=== PATIENT | female | born 1940 | race Caucasian/White ===

== ENCOUNTER 2016-10-01 14:40 | Inpatient (IN) | payer BC, OTHER ==
--- NOTE | 2016-10-01 15:20 | PDOC ---
History of Present Illness - General History Source: Patient, Friend (Neighbors ) Exam Limitations: No Limitations - History of Present Illness Initial Comments: 10/01/16 16:04 The patient is a 75 year old female presenting with her family, with a significant past medical history of CABG s/p cardiac stents (x2), chronic constipation, HTN, HLD and hypothyroidism, who presents to the emergency department with upper back pain for the past 3 days. She describes her pain as localized in the left upper back, ranging from mild to moderate, with radiation to the chest, and down her arm. She also reports blurry vision on the left eye. She notes that she recently had open heart surgery 2 months and is worried to what this pain may be. The patient denies shortness of breath, headache and dizziness. Denies fever, chills, nausea, vomit, diarrhea and constipation. Denies dysuria, frequency, urgency and hematuria. Allergies: None Past surgical history: CABG s/p cardiac stents (x2) (08/02/2016) Social history: No alcohol, tobacco or drug use reported PMD - Dr. 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 Mendez) <Darrick Rossi - Last Filed: 10/01/16 16:02> <Andrew Toney - Last Filed: 10/01/16 17:15> - General Chief Complaint: Chest Pain Stated Complaint: CHEST DISCOMFORT/BACK PAIN Time Seen by Provider: 10/01/16 15:06 Past History <Darrick Rossi - Last Filed: 10/01/16 16:02> - Past Medical History Anemia: No Asthma: No Cancer: No Cardiac Disorders: Yes (HEART MURMUR) CVA: No COPD: No CHF: No Dementia: No Diabetes: No GI Disorders: Yes (CHRONIC CONSTIPATION) Disorders: No HTN: Yes Hypercholesterolemia: Yes Liver Disease: No Seizures: No Thyroid Disease: Yes (HYPOTHYROID DISEASE) - Surgical History Abdominal Surgery: Yes Appendectomy: No Cardiac Surgery: Yes (07/13/2016) Cholecystectomy: No Lung Surgery: No Neurologic Surgery: No Orthopedic Surgery: No - Psycho/Social/Smoking Cessation Hx Anxiety: No Suicidal Ideation: No Smoking History: Never smoked Have you smoked in the past 12 months: No Hx Alcohol Use: No Drug/Substance Use Hx: No Substance Use Type: None Hx Substance Use Treatment: No <Andrew Toney - Last Filed: 10/01/16 17:15> - Past Medical History Allergies/Adverse Reactions: Allergies Allergy/AdvReac Type Severity Reaction Status Date / Time No Known Drug Allergies Allergy Verified 10/01/16 14:46 Home Medications: Ambulatory Orders Atorvastatin Ca [Lipitor] 40 mg PO DAILY 03/21/14 Sennosides [Senna] 8.6 mg PO PRN 03/24/14 Fluticasone Propionate [Flovent Diskus] 50 mcg IH DAILY 08/12/14 Guar Gum [Benefiber] 1 each PO BID #0 packet 08/12/14 Levothyroxine [Synthroid -] 75 mcg PO DAILY 08/12/14 Aspirin Coated [Ecotrin -] 81 mg PO DAILY #0 09/03/14 Acetaminophen [Mapap] 1,000 mg PO BID 10/01/16 Calcium Carbonate/Vitamin D3 [Oyster Shell 500-Vit D3 200 Tb] 1 each PO BID Escitalopram Oxalate [Lexapro -] 20 mg PO DAILY 10/01/16 Metoprolol Tartrate 12.5 mg PO BID 10/01/16 Review of Systems - Review of Systems Constitutional: No: Chills, Fever Respiratory: Yes: Shortness of Breath. No: Cough Cardiac (ROS): Yes: Chest Pain, Lightheadedness. No: Syncope ABD/GI: No: Vomiting All Other Systems: Reviewed and Negative <Andrew Toney - Last Filed: 10/01/16 17:15> *Physical Exam - Vital Signs Last Vital Signs Temp Pulse Resp BP Pulse Ox 98.6 F 70 18 128/71 98 10/01/16 14:42 10/01/16 14:42 10/01/16 14:42 10/01/16 14:42 10/01/16 15:05 - Physical Exam Comments: 10/01/16 16:02 GENERAL: The patient is awake, alert, and fully oriented, in no acute distress. HEAD: Normal with no signs of trauma. EYES: Pupils equal, round and reactive to light, extraocular movements intact, sclera anicteric, conjunctiva clear with no pallor. ENT: Ears normal, nares patent, oropharynx clear without exudates. Moist mucous membranes. NECK: Normal range of motion, supple without lymphadenopathy, JVD, or masses. LUNGS: Breath sounds equal, (+) Crackles at the left base. HEART: Regular rate and rhythm, normal S1 and S2 without murmur or rub. ABDOMEN: Soft/nontender/nondistended. BS wnl. No guarding or rebound. No palpable masses. No hepatosplenomegaly. EXTREMITIES: Normal range of motion, no edema. No clubbing or cyanosis. No cords , erythema, or tenderness. NEUROLOGICAL: Cranial nerves II through XII grossly intact. Normal speech, normal gait. PSYCH: Normal mood, normal affect. SKIN: (+) Well healed scars in the chest. Warm, Dry, normal turgor, no rashes or lesions noted. <Darrick Rossi - Last Filed: 10/01/16 16:02> - Vital Signs Last Vital Signs Temp Pulse Resp BP Pulse Ox 98.6 F 70 18 128/71 98 10/01/16 14:42 10/01/16 14:42 10/01/16 14:42 10/01/16 14:42 10/01/16 14:42 <Andrew Toney - Last Filed: 10/01/16 17:15> Heart Score/ECG Review #1 ECG reviewed & interpreted by me at: 14:53 General ECG Interpretation: Sinus Rhythm, Normal Rate (73), Normal Intervals ( LVH, qtc 456), No acute ischemic changes (T wave flattening AVL) <Andrew Toney - Last Filed: 10/01/16 17:15> ED Treatment Course - LABORATORY CBC & Chemistry Diagram: 10/01/16 16:00 10/01/16 16:00 <Andrew Toney - Last Filed: 10/01/16 17:15> Medical Decision Making - Medical Decision Making 10/01/16 15:35 A portion of this note was documented by scribe services under my direction. I have reviewed the details of the note, within reason, and agree with the documentation with the following case summary and management plan written by me. 75-year-old female with history of hypertension, high cholesterol, CAD status post 2 stents in June, valvular disease status post 2 valve replacements in July (she is unsure which ones) presents now with 3-4 days of back/chest pain radiating down her left arm with shortness of breath. No syncope. Vital signs within normal limits, not hypertensive, comfortable in stretcher and not in acute distress Cardiopulmonary exam is normal except for left basilar crackles Well-healed incisional scars 75-year-old female with chest/back pain following open valve replacements. Patient has low insight into her recent surgeries, which were performed at [facility]. Concern for ACS, but also for dissection given the location of the pain and recent intervention. labs, EKG CXR -> CTA dissection protocol admission, PMD Yumiko Dallas 10/01/16 17:08 Labs are within normal limits, including troponin. On my prelim review, CXR has mediastinum wnl. Will hydrate with IV fluids, perform CTA dissection protocol, and proceed with admission. Patient was signed out to the oncoming ED physician to follow-up the results, reassess the patient, and admit/transfer as per the previous plan. <Andrew Toney - Last Filed: 10/01/16 17:15> *DC/Admit/Observation/Transfer - Attestations Scribe Attestion: 10/01/16 16:02 Documentation prepared by Darrick Rossi, acting as medical research assistant for Andrew Toney MD <Darrick Rossi - Last Filed: 10/01/16 16:02> <Andrew Toney - Last Filed: 10/01/16 17:15> Diagnosis at time of Disposition: Left sided chest pain, Heart valve replaced - Referrals Referrals: Willy Dallas MD [Primary Care Provider] -
[2016-10-01] MEDS ORDERED: morphine CARPU-JECT 2 MG/1 ML DISP.SYRIN IVPUSH ONE (16:05)
[2016-10-01 16:19] LABS: BASOPHIL 0.6 % (0-2.0); EOSINOPHIL 1.9 % (0-4.5); MCH 29.7 pg (25.7-33.7); MCHC 32.4 g/dl (32.0-36.0); MEAN CELL VOLUME 91.6 fl (80-96); NEUTROPHILS 65.8 % (42.8-82.8); PLATELET COUNT 206 K/MM3 (134-434); RDW 14.1 % (11.6-15.6); WHITE BLOOD COUNT 6.8 K/mm3 (4.0-10.0)
[2016-10-01 16:23] LABS: URINE APPEARANCE CLEAR; URINE BILIRUBIN NEGATIVE (NEGATIVE); URINE BLOOD NEGATIVE (NEGATIVE); URINE COLOR LTYELLOW; URINE GLUCOSE (UA) NEGATIVE (NEGATIVE); URINE KETONE NEGATIVE (NEGATIVE); URINE LEUK ESTERASE NEGATIVE (NEGATIVE); URINE NITRITE NEGATIVE (NEGATIVE); URINE PROTEIN NEGATIVE (NEGATIVE); URINE UROBILINOGEN NEGATIVE E.U./dl (0.2-1.0)
[2016-10-01] MEDS ORDERED: morphine CARPU-JECT 2 MG/1 ML DISP.SYRIN ONE (16:27)
[2016-10-01 16:36] LABS: INR 1.21 (0.82-1.09); PROTHROMBIN TIME (PATIENT) 13.4 SEC (9.98-11.88)
[2016-10-01 16:44] LABS: ALBUMIN 3.9 g/dl (3.4-5.0); ALK PHOS 81 U/L (45-117); ANION GAP 9 (8-16); BILIRUBIN,TOTAL 0.5 mg/dL (0.2-1.0); CALCIUM 9.1 mg/dL (8.5-10.1); CO2 26 mmol/L (21-32); COCKROFT - GAULT 63.5545; CREATININE 0.7 mg/dL (0.55-1.02); GLUCOSE,RANDOM 94 mg/dL (74-106); MAGNESIUM 2.2 mg/dL (1.8-2.4); SGOT/AST 15 U/L (15-37); SGPT/ALT 16 U/L (12-78); TOT PROT 7.5 g/dl (6.4-8.2)
[2016-10-01 16:46] LABS: TROPONIN I < 0.02 ng/ml (0.00-0.05)
[2016-10-01] MEDS ORDERED: SODIUM CHLORIDE 1,000 ML IV ONE (17:07)
--- NOTE | 2016-10-01 18:43 | PDOC ---
*Physical Exam - Vital Signs Last Vital Signs Temp Pulse Resp BP Pulse Ox 98.6 F 73 17 102/85 100 10/01/16 14:42 10/01/16 18:09 10/01/16 18:09 10/01/16 18:09 10/01/16 18:09 ED Treatment Course - LABORATORY CBC & Chemistry Diagram: 10/01/16 16:00 10/01/16 16:00 - ADDITIONAL ORDERS Additional order review: Laboratory Results 10/01/16 10/01/16 10/01/16 17:00 16:00 16:00 INR Sodium 140 Potassium 4.3 D Chloride 105 Carbon Dioxide 26 Anion Gap 9 BUN 20 H Creatinine 0.7 Creat Clearance w eGFR > 60 Random Glucose 94 Calcium 9.1 Magnesium 2.2 Total Bilirubin 0.5 AST 15 ALT 16 D Alkaline Phosphatase 81 Creatine Kinase 98 Troponin I < 0.02 Total Protein 7.5 Albumin 3.9 Urine Color Ltyellow Urine Appearance Clear Urine pH 6.0 Ur Specific [place] 1.016 Urine Protein Negative Urine Glucose (UA) Negative Urine Ketones Negative Urine Blood Negative Urine Nitrite Negative Urine Bilirubin Negative Urine Urobilinogen Negative Ur Leukocyte Esterase Negative Blood Type A POSITIVE Antibody Screen Negative 10/01/16 16:00 INR 1.21 H Sodium Potassium Chloride Carbon Dioxide Anion Gap BUN Creatinine Creat Clearance w eGFR Random Glucose Calcium Magnesium Total Bilirubin AST ALT Alkaline Phosphatase Creatine Kinase Troponin I Total Protein Albumin Urine Color Urine Appearance Urine pH Ur Specific [place] Urine Protein Urine Glucose (UA) Urine Ketones Urine Blood Urine Nitrite Urine Bilirubin Urine Urobilinogen Ur Leukocyte Esterase Blood Type Antibody Screen 10/01/16 16:00 RBC 4.24 MCV 91.6 MCHC 32.4 RDW 14.1 MPV 9.0 Neutrophils % 65.8 Lymphocytes % 24.5 Monocytes % 7.2 Eosinophils % 1.9 Basophils % 0.6 - Medications Given in the ED: ED Medications Discontinued Medications Generic Name Dose Route Start Last Admin Trade Name Freq PRN Reason Stop Dose Admin Morphine Sulfate 2 mg 10/01/16 16:05 10/01/16 16:33 Morphine Injection - IVPUSH 10/01/16 16:06 2 mg ONCE ONE Administration Medical Decision Making - Medical Decision Making 10/01/16 18:42 I received this patient on signed out. Briefly she is a 75-year-old female who is approximately 2 months status post? valve replacement Pr presents to the ER with chest and back pain No shortness of breath 10/01/16 18:43 Laboratory Tests 10/01/16 10/01/16 10/01/16 16:00 16:00 16:00 WBC 6.8 Hgb 12.6 Hct 38.9 Plt Count 206 INR 1.21 H BUN 20 H Creatinine 0.7 Creatine Kinase 98 Troponin I < 0.02 Awaiting CTA chest 10/01/16 22:22 Multiple calls made to imaging curriculum consultant CT finally read No evidence of dissection Will admit to Dr Anne Clinical Impression: chest pain *DC/Admit/Observation/Transfer Diagnosis at time of Disposition: Left sided chest pain, Heart valve replaced - Discharge Dispostion Condition at time of disposition: Stable Admit: Yes - Referrals Referrals: Willy Dallas MD [Primary Care Provider] - - Patient Instructions - Post Discharge Activity
[2016-10-01] MEDS ORDERED: OXYCODONE/APAP 5/325MG COMBO TABLET PO ONE (23:49)
[2016-10-01] MEDS ORDERED: OXYCODONE/APAP 5/325MG COMBO TABLET ONE (23:55)
[2016-10-02] MEDS ORDERED: LEVOTHYROXINE NA 25 MCG TABLET (FP) ONE (07:03)
[2016-10-02] MEDS: LEVOTHYROXINE NA 75 MCG TABLET (FP) PO SCH (07:07)
--- NOTE | 2016-10-02 07:57 | CON.CARD ---
Consult Consult Specialty:: Cardiology dr. Mendez - History of Present Illness History of Present Illness: he patient is a 75 year old female presenting with her family, with a significant past medical history of CABG s/p cardiac stents (x2), chronic constipation, HTN, HLD and hypothyroidism, who presents to the emergency department with upper back pain for the past 3 days. She describes her pain as localized in the left upper back, ranging from mild to moderate, with radiation to the chest, and down her arm. She also reports blurry vision on the left eye. She notes that she recently had open heart surgery 2 months and is worried to what this pain may be. The patient denies shortness of breath, headache and dizziness. Denies fever, chills, nausea, vomit, diarrhea and constipation. Denies dysuria, frequency, urgency and hematuria. Allergies: None Past surgical history: CABG s/p cardiac stents (x2) (08/02/2016) Social history: No alcohol, tobacco or drug use reported PMD - Dr. 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 Mendez) - Past Medical History Cardio/Vascular: Yes: CAD, HTN, Hyperlipdemia Endocrine: Yes: Hypothyroidism - Past Surgical History Past Surgical History: Yes: CABG - Alcohol/Substance Use Hx Alcohol Use: No - Smoking History Smoking history: Never smoked Have you smoked in the past 12 months: No Home Medications - Allergies Allergies/Adverse Reactions: Allergies Allergy/AdvReac Type Severity Reaction Status Date / Time No Known Drug Allergies Allergy Verified 10/01/16 14:46 - Home Medications Home Medications: Ambulatory Orders Atorvastatin Ca [Lipitor] 40 mg PO DAILY 03/21/14 Sennosides [Senna] 8.6 mg PO PRN 03/24/14 Fluticasone Propionate [Flovent Diskus] 50 mcg IH DAILY 08/12/14 Guar Gum [Benefiber] 1 each PO BID #0 packet 08/12/14 Levothyroxine [Synthroid -] 75 mcg PO DAILY 08/12/14 Aspirin Coated [Ecotrin -] 81 mg PO DAILY #0 09/03/14 Acetaminophen [Mapap] 1,000 mg PO BID 10/01/16 Calcium Carbonate/Vitamin D3 [Oyster Shell 500-Vit D3 200 Tb] 1 each PO BID Escitalopram Oxalate [Lexapro -] 20 mg PO DAILY 10/01/16 Metoprolol Tartrate 12.5 mg PO BID 10/01/16 Review of Systems - Review of Systems Constitutional: reports: No Symptoms Eyes: reports: No Symptoms HENT: reports: No Symptoms Neck: reports: No Symptoms Cardiovascular: reports: No Symptoms Gastrointestinal: reports: No Symptoms Genitourinary: reports: No Symptoms Breasts: reports: No Symptoms Reported Musculoskeletal: reports: Other (left shoulder pain) Integumentary: reports: No Symptoms Neurological: reports: No Symptoms Endocrine: reports: No Symptoms Hematology/Lymphatic: reports: No Symptoms Psychiatric: reports: No Symptoms Vital Signs: Vital Signs Temperature 97.7 F 10/02/16 05:05 Pulse Rate 78 10/02/16 05:05 Respiratory Rate 16 10/02/16 05:05 Blood Pressure 108/67 10/02/16 05:05 O2 Sat by Pulse Oximetry (%) 96 10/02/16 05:05 Constitutional: Yes: Well Nourished, No Distress, Calm Eyes: Yes: WNL, Conjunctiva Clear, EOM Intact HENT: Yes: WNL, Atraumatic, Normocephalic Neck: Yes: WNL, Supple, Trachea Midline Respiratory: Yes: WNL, Regular, CTA Bilaterally Gastrointestinal: Yes: WNL, Normal Bowel Sounds Renal/: Yes: WNL Cardiovascular: Yes: WNL, Regular Rate and Rhythm Musculoskeletal: Yes: WNL Extremities: Yes: WNL Integumentary: Yes: WNL Neurological: Yes: WNL, Alert, Oriented ...Motor Strength: WNL Psychiatric: Yes: WNL, Alert, Oriented - Other Data Labs, Other Data: INR, PTT INR 1.21 (0.82-1.09) H 10/01/16 16:00 Laboratory Tests 10/01/16 10/01/16 10/01/16 16:00 16:00 16:00 WBC 6.8 RBC 4.24 Hgb 12.6 Hct 38.9 MCV 91.6 MCHC 32.4 RDW 14.1 Plt Count 206 MPV 9.0 Neutrophils % 65.8 Lymphocytes % 24.5 Monocytes % 7.2 Eosinophils % 1.9 Basophils % 0.6 INR 1.21 H Sodium 140 Potassium 4.3 D Chloride 105 Carbon Dioxide 26 Anion Gap 9 BUN 20 H Creatinine 0.7 Creat Clearance w eGFR > 60 Random Glucose 94 Calcium 9.1 Magnesium 2.2 Total Bilirubin 0.5 AST 15 ALT 16 D Alkaline Phosphatase 81 Creatine Kinase 98 Troponin I < 0.02 Total Protein 7.5 Albumin 3.9 Urine Color Urine Appearance Urine pH Ur Specific [place] Urine Protein Urine Glucose (UA) Urine Ketones Urine Blood Urine Nitrite Urine Bilirubin Urine Urobilinogen Ur Leukocyte Esterase Blood Type Antibody Screen 10/01/16 10/01/16 10/02/16 16:00 17:00 06:00 WBC 5.3 RBC 3.87 Hgb 11.7 Hct 35.8 MCV 92.5 MCHC 32.7 RDW 13.8 Plt Count 176 MPV 9.1 Neutrophils % 44.9 D Lymphocytes % 42.2 H D Monocytes % 9.6 Eosinophils % 2.8 Basophils % 0.5 INR Sodium Potassium Chloride Carbon Dioxide Anion Gap BUN Creatinine Creat Clearance w eGFR Random Glucose Calcium Magnesium Total Bilirubin AST ALT Alkaline Phosphatase Creatine Kinase Troponin I Total Protein Albumin Urine Color Ltyellow Urine Appearance Clear Urine pH 6.0 Ur Specific [place] 1.016 Urine Protein Negative Urine Glucose (UA) Negative Urine Ketones Negative Urine Blood Negative Urine Nitrite Negative Urine Bilirubin Negative Urine Urobilinogen Negative Ur Leukocyte Esterase Negative Blood Type A POSITIVE Antibody Screen Negative 10/02/16 06:00 WBC RBC Hgb Hct MCV MCHC RDW Plt Count MPV Neutrophils % Lymphocytes % Monocytes % Eosinophils % Basophils % INR Sodium 141 Potassium 4.1 Chloride 107 Carbon Dioxide 28 Anion Gap 6 L BUN 14 D Creatinine 0.6 Creat Clearance w eGFR > 60 Random Glucose 74 D Calcium 8.2 L Magnesium Total Bilirubin 0.4 AST 13 L ALT 13 Alkaline Phosphatase 71 Creatine Kinase 71 Troponin I < 0.02 Total Protein 6.3 L Albumin 3.2 L Urine Color Urine Appearance Urine pH Ur Specific [place] Urine Protein Urine Glucose (UA) Urine Ketones Urine Blood Urine Nitrite Urine Bilirubin Urine Urobilinogen Ur Leukocyte Esterase Blood Type Antibody Screen Imaging - Results Chest X-ray: Image Reviewed (no i/e) EKG: Image Reviewed (sr lvh no changes) Problem List - Problems (1) Heart valve replaced Code(s): Z95.2 - PRESENCE OF PROSTHETIC HEART VALVE (2) Left sided chest pain Code(s): R07.9 - CHEST PAIN, UNSPECIFIED (3) Abrasions of multiple sites Code(s): T14.8 - OTHER INJURY OF UNSPECIFIED BODY REGION (4) Atypical chest pain Code(s): R07.89 - OTHER CHEST PAIN (5) Closed head injury Code(s): S09.90XA - UNSPECIFIED INJURY OF HEAD, INITIAL ENCOUNTER Qualifiers: Encounter type: initial encounter Qualified Code(s): S09.90XA - Unspecified injury of head, initial encounter (6) Headache Code(s): R51 - HEADACHE Qualifiers: Headache type: post-traumatic (7) Knee joint pain Code(s): M25.569 - PAIN IN UNSPECIFIED KNEE Qualifiers: Laterality: right Qualified Code(s): M25.561 - Pain in right knee (8) Shoulder contusion Code(s): S40.019A - CONTUSION OF UNSPECIFIED SHOULDER, INITIAL ENCOUNTER Qualifiers: Encounter type: sequela Laterality: right Qualified Code(s): S40.011S - Contusion of right shoulder, sequela (9) Torticollis, acute Code(s): M43.6 - TORTICOLLIS (10) Trauma Code(s): T14.90 - INJURY, UNSPECIFIED Assessment/Plan l shoulder pain no cp ashd s/p cabg s/p pci x 2 Aug 02 htn hld hypothyroidism plan; r/o mi obtain old records from the office ekg echo will add Plavix since recent PCI cont asa and bb
[2016-10-02 08:02] LABS: BASOPHIL 0.5 % (0-2.0); EOSINOPHIL 2.8 % (0-4.5); MCH 30.3 pg (25.7-33.7); MCHC 32.7 g/dl (32.0-36.0); MEAN CELL VOLUME 92.5 fl (80-96); MEAN PLT VOLUME 9.1 fl (7.5-11.1); NEUTROPHILS 44.9 % (42.8-82.8); PLATELET COUNT 176 K/MM3 (134-434); RDW 13.8 % (11.6-15.6); WHITE BLOOD COUNT 5.3 K/mm3 (4.0-10.0)
[2016-10-02 08:21] LABS: ALBUMIN 3.2 g/dl (3.4-5.0); ANION GAP 6 (8-16); CALCIUM 8.2 mg/dL (8.5-10.1); CO2 28 mmol/L (21-32); COCKROFT - GAULT 74.1455; CREATININE 0.6 mg/dL (0.55-1.02); GLUCOSE,RANDOM 74 mg/dL (74-106); SGOT/AST 13 U/L (15-37); SGPT/ALT 13 U/L (12-78)
[2016-10-02 08:26] LABS: ALK PHOS 71 U/L (45-117); BILIRUBIN,TOTAL 0.4 mg/dL (0.2-1.0); TOT PROT 6.3 g/dl (6.4-8.2); TROPONIN I < 0.02 ng/ml (0.00-0.05)
[2016-10-02] MEDS ORDERED: PATIENT'S OWN MEDICATION (NON-FORMULARY) (Fluticasone Propionate [Flovent Diskus] 50 MCG) IH SCH (10:00)
[2016-10-02] MEDS: METOPROLOL TARTRATE 25 MG TABLET (FP) PO SCH ×2 (10:10→22:25)
[2016-10-02] MEDS: ESCITALOPRAM OXALATE 20 MG TABLET (FP) PO SCH (10:14)
[2016-10-02] MEDS: HEPARIN NA (PORCINE) 5,000 UNITS/ML 1ML VIAL SQ SCH ×2 (10:16→22:23)
[2016-10-02] MEDS: CALCIUM 500MG/VIT-D 200 UNITS COMBO TABLET (FP) PO SCH ×2 (10:17→22:25)
[2016-10-02] MEDS: ASPIRIN COATED 81 MG TABLET.EC PO SCH (10:17)
[2016-10-02] MEDS ORDERED: CLOPIDOGREL BISULFATE 75 MG TABLET (FP) ONE (11:22)
[2016-10-02] MEDS: ACETAMINOPHEN 500 MG TABLET (FP) PO SCH (11:25)
[2016-10-02] MEDS: CLOPIDOGREL BISULFATE 75 MG TABLET (FP) PO SCH (11:26)
[2016-10-02 17:08] VITALS: BMI 28.8
--- NOTE | 2016-10-02 18:46 | HP ---
Admitting History and Physical - Admission History of Present Illness: Patient is a 75 year old female with PMH significant for CAD, s/p CABG s/p and cardiac stents (x2). Pt also has a h/o HTN, HLD and hypothyroidism, who presents to the emergency department with upper back pain for the past 3 days. She describes her pain as localized in the left upper back, ranging from mild to moderate, with radiation to the chest, and down her arm. She notes that she recently had open heart surgery 2 months and is worried to what this pain may be. In the ER pt had cta chest wc was unremarkable. Pain is pleuritic at times but also associated w/ dyspnea. History Source: Patient, Medical Record - Past Medical History Cardiovascular: Yes: CAD, HTN, Hyperlipdemia, Other (Cardiac stents) Endocrine: Yes: Hypothyroidism - Past Surgical History Past Surgical History: Yes: CABG Additional Past Surgical History: Cardiac stents - Smoking History Smoking history: Never smoked Have you smoked in the past 12 months: No - Alcohol/Substance Use Hx Alcohol Use: No Home Medications - Allergies Allergies/Adverse Reactions: Allergies Allergy/AdvReac Type Severity Reaction Status Date / Time No Known Drug Allergies Allergy Verified 10/01/16 14:46 - Home Medications Home Medications: Ambulatory Orders Atorvastatin Ca [Lipitor] 40 mg PO DAILY 03/21/14 Sennosides [Senna] 8.6 mg PO PRN 03/24/14 Fluticasone Propionate [Flovent Diskus] 50 mcg IH DAILY 08/12/14 Guar Gum [Benefiber] 1 each PO BID #0 packet 08/12/14 Levothyroxine [Synthroid -] 75 mcg PO DAILY 08/12/14 Aspirin Coated [Ecotrin -] 81 mg PO DAILY #0 09/03/14 Acetaminophen [Mapap] 1,000 mg PO BID 10/01/16 Calcium Carbonate/Vitamin D3 [Oyster Shell 500-Vit D3 200 Tb] 1 each PO BID Escitalopram Oxalate [Lexapro -] 20 mg PO DAILY 10/01/16 Metoprolol Tartrate 12.5 mg PO BID 10/01/16 Family Disease History - Family Disease History Family History: Unremarkable Review of Systems - Review of Systems Constitutional: reports: No Symptoms Eyes: reports: No Symptoms HENT: reports: No Symptoms Neck: reports: No Symptoms Cardiovascular: reports: Chest Pain Respiratory: reports: SOB Gastrointestinal: reports: No Symptoms Physical Examination Vital Signs: Vital Signs Temperature 98.2 F 10/02/16 16:52 Pulse Rate 88 10/02/16 16:52 Respiratory Rate 18 10/02/16 16:52 Blood Pressure 119/75 10/02/16 16:52 O2 Sat by Pulse Oximetry (%) 96 10/02/16 16:49 Constitutional: Yes: Well Nourished HENT: Yes: WNL Neck: Yes: WNL, Supple Cardiovascular: Yes: WNL, Regular Rate and Rhythm Respiratory: Yes: WNL, Regular, CTA Bilaterally, Other ((+) tenderness palpation lt ant chest wall) Gastrointestinal: Yes: WNL, Normal Bowel Sounds, Soft, Abdomen, Obese Musculoskeletal: Yes: WNL Extremities: Yes: WNL Edema: No Neurological: Yes: WNL, Alert, Oriented ...Motor Strength: WNL Labs: CBC, BMP 10/02/16 06:00 10/02/16 06:00 Problem List - Problems (1) Chest pain Assessment/Plan: ?muscular skeletal in origin However due to recent CABG will monitor on tele Serial cpk/troponin Admit to tele Cardio consult check echo Code(s): R07.9 - CHEST PAIN, UNSPECIFIED (2) HTN (hypertension) Assessment/Plan: BP stable Cont asa/toprol Code(s): I10 - ESSENTIAL (PRIMARY) HYPERTENSION (3) HLD (hyperlipidemia) Assessment/Plan: Cont lipitor Code(s): E78.5 - HYPERLIPIDEMIA, UNSPECIFIED (4) Hypothyroidism Assessment/Plan: Cont levothyroxine Code(s): E03.9 - HYPOTHYROIDISM, UNSPECIFIED
[2016-10-02] MEDS ORDERED: ATORVASTATIN CA 40 MG TABLET (FP) PO SCH (22:00)
[2016-10-02] MEDS ORDERED: METOPROLOL TARTRATE 25 MG TABLET (FP) ONE (22:06)
[2016-10-02] MEDS ORDERED: HEPARIN NA (PORCINE) 5,000 UNITS/ML 1ML VIAL ONE (22:06)
[2016-10-02] MEDS ORDERED: ATORVASTATIN CA 40 MG TABLET (FP) ONE (22:06)
[2016-10-02] MEDS ORDERED: SENNOSIDES 8.6MG TABLET (FP) PO PRN (23:58)
--- NOTE | 2016-10-03 00:09 | EKG ---
Test Reason : Blood Pressure : / mmHG Vent. Rate : 073 BPM Atrial Rate : 073 BPM P-R Int : 144 ms QRS Dur : 088 ms QT Int : 414 ms P-R-T Axes : 046 -06 057 degrees QTc Int : 456 ms NORMAL SINUS RHYTHM POSSIBLE LEFT ATRIAL ENLARGEMENT LEFT VENTRICULAR HYPERTROPHY ABNORMAL ECG WHEN COMPARED WITH ECG OF 03-MAR-2015 17:52, NO SIGNIFICANT CHANGE WAS FOUND Confirmed by SHANITA CROW MD ([id number]) on 10/03/2016 12:09:17 AM Referred By: Confirmed By:SHANITA CROW MD
[2016-10-03] MEDS: ACETAMINOPHEN 500 MG TABLET (FP) PO SCH ×2 (00:21→10:55)
[2016-10-03 06:04] VITALS: BP 154/76
[2016-10-03] MEDS: LEVOTHYROXINE NA 75 MCG TABLET (FP) PO SCH (06:11)
[2016-10-03 08:56] LABS: BASOPHIL 0.5 % (0-2.0); EOSINOPHIL 2.8 % (0-4.5); MCH 30.8 pg (25.7-33.7); MCHC 33.9 g/dl (32.0-36.0); MEAN PLT VOLUME 9.4 fl (7.5-11.1); NEUTROPHILS 45.6 % (42.8-82.8); PLATELET COUNT 188 K/MM3 (134-434); RDW 13.7 % (11.6-15.6)
[2016-10-03] MEDS ORDERED: PNEUMOC 13-VAL CONJ-DIP CRM/PF 0.5 ML DISP.SYRIN IM ONE (10:00)
[2016-10-03 10:43] LABS: ALBUMIN 3.5 g/dl (3.4-5.0); ANION GAP 10 (8-16); BILIRUBIN,TOTAL 0.3 mg/dL (0.2-1.0); CO2 25 mmol/L (21-32); COCKROFT - GAULT 74.1455; CREATININE 0.6 mg/dL (0.55-1.02); GLUCOSE,RANDOM 90 mg/dL (74-106); SGOT/AST 19 U/L (15-37); SGPT/ALT 14 U/L (12-78)
[2016-10-03 10:44] LABS: ALK PHOS 75 U/L (45-117)
[2016-10-03] MEDS ORDERED: ESCITALOPRAM OXALATE 10 MG TABLET (FP) ONE (10:50)
[2016-10-03] MEDS: CALCIUM 500MG/VIT-D 200 UNITS COMBO TABLET (FP) PO SCH (10:53)
[2016-10-03] MEDS: METOPROLOL TARTRATE 25 MG TABLET (FP) PO SCH (10:53)
[2016-10-03] MEDS: HEPARIN NA (PORCINE) 5,000 UNITS/ML 1ML VIAL SQ SCH (10:54)
[2016-10-03] MEDS: ESCITALOPRAM OXALATE 20 MG TABLET (FP) PO SCH (10:54)
[2016-10-03] MEDS: ASPIRIN COATED 81 MG TABLET.EC PO SCH (10:54)
[2016-10-03] MEDS: CLOPIDOGREL BISULFATE 75 MG TABLET (FP) PO SCH (10:54)
--- NOTE | 2016-10-03 12:42 | PN ---
Progress Note, Physician History of Present Illness: seen and examined today in nad. c/o L axilla pain. pain exacerbated by upper body movements especially raising her L arm. no overnight events. no new complaints. - Current Medication List Current Medications: Active Medications Acetaminophen (Tylenol -) 1,000 mg PO BID [facility] Last Admin: 10/03/16 10:55 Dose: 1,000 mg Aspirin (Ecotrin -) 81 mg PO DAILY [facility] Last Admin: 10/03/16 10:54 Dose: 81 mg Atorvastatin Calcium (Lipitor -) 40 mg PO HS [facility] Last Admin: 10/02/16 22:23 Dose: 40 mg Calcium Carbonate/Cholecalciferol (Os-Luis M 500+D -) 1 tab PO BID [facility] Last Admin: 10/03/16 10:53 Dose: 1 tab Clopidogrel Bisulfate (Plavix -) 75 mg PO DAILY [facility] Last Admin: 10/03/16 10:54 Dose: 75 mg Escitalopram Oxalate (Lexapro -) 20 mg PO DAILY [facility] Last Admin: 10/03/16 10:54 Dose: 20 mg Heparin Sodium (Porcine) (Heparin -) 5,000 unit SQ BID [facility] Last Admin: 10/03/16 10:54 Dose: 5,000 unit Levothyroxine Sodium (Synthroid -) 75 mcg PO AM [facility] Last Admin: 10/03/16 06:11 Dose: 75 mcg Metoprolol Tartrate (Lopressor -) 12.5 mg PO BID [facility] Last Admin: 10/03/16 10:53 Dose: 12.5 mg Non-Formulary Medication (Fluticasone Propionate [Flovent Diskus]) 50 mcg IH DAILY [facility] Senna (Senna -) 1 tab PO DAILY PRN Last Admin: 10/03/16 06:11 Dose: 1 tab - Objective Vital Signs: Vital Signs Temperature 98.8 F 10/03/16 05:45 Pulse Rate 66 10/03/16 05:45 Respiratory Rate 20 10/03/16 05:45 Blood Pressure 154/76 10/03/16 05:45 O2 Sat by Pulse Oximetry (%) 97 10/03/16 03:00 Constitutional: Yes: Well Nourished, No Distress, Calm Eyes: Yes: WNL, Conjunctiva Clear, EOM Intact, PERRL HENT: Yes: WNL, Atraumatic, Normocephalic Neck: Yes: WNL, Supple, Trachea Midline Cardiovascular: Yes: Regular Rate and Rhythm, S1, S2. No: Bradycardia, Tachycardia, Pulse Irregular, Bruit, JVD, Gallop, Murmur, Rub, S3, S4, Varicosities Respiratory: Yes: WNL, Regular, CTA Bilaterally. No: Rales, Rhonchi, Wheezes Gastrointestinal: Yes: WNL, Normal Bowel Sounds, Soft. No: Distention, Tenderness Musculoskeletal: Yes: Other (chest wall pain) Extremities: Yes: WNL Edema: No Peripheral Pulses WNL: Yes Peripheral Pulses: Left Doralis Pedis: 2+, Right Dorsalis Pedis: 2+ Integumentary: Yes: WNL Neurological: Yes: Alert, Oriented Psychiatric: Yes: Alert, Oriented Labs: CBC, BMP 10/03/16 08:30 10/03/16 08:30 INR, PTT INR 1.21 (0.82-1.09) H 10/01/16 16:00 - ....Imaging Chest X-ray: Report Reviewed, Image Reviewed EKG: Report Reviewed, Image Reviewed Other: Report Reviewed, Image Reviewed Assessment/Plan 75 year old woman with a history of HTN, HLD, DMII, CAD s/p MISSY LAD 04/2016, valvular heart disease s/p Bio-AVR, MV repair and PFO closure recently, mildly dilated ascending aorta, admitted with L shoulder, L upper back, L axilla pain. Chest pain-atypical, reproducible with L arm movements, most likely MSK -cardiac enzymes wnl -no additional ischemic work up is needed at this point -cont ASA, Plavix, statin, metoprolol -f/up echo that was done today -MSK pain control -pt is acceptable for discharge from a cardiac standpoint with a plan for close outpatient follow up in office CAD-LAD stent 04/2016 -cont meds as above Valvular heart disease-s/p bio AVR and MV repair recently -outpatient f/up HTN-adequately controlled for now -cont current medical regimen HLD -cont statin
[2016-10-03 14:00] VITALS: PULSE 79; TEMP 97.8
== END 2016-10-03 16:28 | disposition home or self-care (01) | DRG 313 ==
LOC: JER 14:40 → SUPCPDRO 14:40 → JERBED 22:24 → OBSVTOIN 10-02 03:44 → J6S 10-02 23:10
PROVIDERS: ADMIT Internal Medicine; ATTEND Internal Medicine
DX: R07.89 Other chest pain (principal); I25.10 Atherosclerotic heart disease of native coronary artery without angina pectoris; Z95.1 Presence of aortocoronary bypass graft; Z95.5 Presence of coronary angioplasty implant and graft; I10 Essential (primary) hypertension; E78.5 Hyperlipidemia, unspecified; E03.9 Hypothyroidism, unspecified; R01.1 Cardiac murmur, unspecified; K59.09 Other constipation; Z95.2 Presence of prosthetic heart valve
CPT/HCPCS: 36415; 71010-TC; 71275-TC; 75635-TC; 80053; 81003; 82550; 83735; 84484; 85025; 85610; 86850; 86900; 86901; 93005; 93010; 93306-TC; 99285-25; G0378; J1644

== ENCOUNTER 2017-03-19 20:00 | Emergency (ER) | payer BC, OTHER ==
[2017-03-19 20:13] VITALS: BP 114/69; PULSE 88; TEMP 99.6; BMI 28.5
--- NOTE | 2017-03-19 21:01 | PDOC ---
History of Present Illness - General History Source: Patient Exam Limitations: No Limitations - History of Present Illness Initial Comments: 03/19/17 21:26 The patient is a 76 year old female with history significant for hypertension, hyperlipidemia, osteoporosis who presents to the ED complaining of left hip pain s/p mechanical fall tonight. She states she was taking out the garbage when she slipped and fell on her left hip. She now complains of left hip pain radiating to the left knee that is worse with walking. She also states she twisted her left fourth finger during the fall and now complains of left fourth finger pain. The patient denies any numbness or tingling. She denies any lightheadedness or chest pain prior to her fall. No head trauma or LOC. She denies any other injury. <Jessenia Roper - Last Filed: 03/19/17 22:18> <Fannie Arnold - Last Filed: 03/19/17 23:51> - General Chief Complaint: Injury Stated Complaint: INJURY Time Seen by Provider: 03/19/17 20:58 Past History <Jessenia Roper - Last Filed: 03/19/17 22:18> - Past Medical History Anemia: No Asthma: No Cancer: No Cardiac Disorders: Yes (HEART MURMUR) CVA: No COPD: No CHF: No Dementia: No Diabetes: No GI Disorders: Yes (CHRONIC CONSTIPATION) Disorders: No HTN: Yes Hypercholesterolemia: Yes Liver Disease: No Seizures: No Thyroid Disease: Yes (HYPOTHYROID DISEASE) - Surgical History Abdominal Surgery: Yes Appendectomy: No Cardiac Surgery: Yes (07/13/2016) Cholecystectomy: No Lung Surgery: No Neurologic Surgery: No Orthopedic Surgery: No - Suicide/Smoking/Psychosocial Hx Smoking History: Never smoked Have you smoked in the past 12 months: No Information on smoking cessation initiated: No Hx Alcohol Use: No Drug/Substance Use Hx: No Substance Use Type: None Hx Substance Use Treatment: No <Fannie Arnold - Last Filed: 03/19/17 23:51> - Past Medical History Allergies/Adverse Reactions: Allergies Allergy/AdvReac Type Severity Reaction Status Date / Time No Known Drug Allergies Allergy Verified 03/19/17 20:15 Home Medications: Ambulatory Orders Atorvastatin Ca [Lipitor] 40 mg PO DAILY 03/21/14 Sennosides [Senna] 8.6 mg PO PRN 03/24/14 Fluticasone Propionate [Flovent Diskus] 50 mcg IH DAILY 08/12/14 Guar Gum [Benefiber] 1 each PO BID #0 packet 08/12/14 Levothyroxine [Synthroid -] 75 mcg PO DAILY 08/12/14 Aspirin Coated [Ecotrin -] 81 mg PO DAILY #0 09/03/14 Acetaminophen [Mapap] 1,000 mg PO BID 10/01/16 Calcium Carbonate/Vitamin D3 [Oyster Shell 500-Vit D3 200 Tb] 1 each PO BID Escitalopram Oxalate [Lexapro -] 20 mg PO DAILY 10/01/16 Metoprolol Tartrate 12.5 mg PO BID 10/01/16 Clopidogrel Bisulfate [Plavix -] 75 mg PO DAILY tablet 10/03/16 Ibuprofen [Motrin -] 600 mg PO TID #30 tablet 03/19/17 Review of Systems - Review of Systems Able to Perform ROS?: Yes Comments:: 03/19/17 21:31 GENERAL/CONSTITUTIONAL: No fever or chills. No weakness. HEAD, EYES, EARS, NOSE AND THROAT: No change in vision. No ear pain or discharge. No sore throat. CARDIOVASCULAR: No chest pain or shortness of breath. RESPIRATORY: No cough, wheezing, or hemoptysis. GASTROINTESTINAL: No nausea, vomiting, diarrhea or constipation. GENITOURINARY: No dysuria, frequency, or change in urination. MUSCULOSKELETAL: +L hip pain radiating to L knee. +L fourth finger pain. No other joint or muscle swelling or pain. No neck or back pain. SKIN: No rash NEUROLOGIC: No headache, vertigo, loss of consciousness, or change in strength/ sensation. ENDOCRINE: No increased thirst. No abnormal weight change. HEMATOLOGIC/LYMPHATIC: No anemia, easy bleeding, or history of blood clots. ALLERGIC/IMMUNOLOGIC: No hives or skin allergy. <Jessenia Roper - Last Filed: 03/19/17 22:18> *Physical Exam - Vital Signs Last Vital Signs Temp Pulse Resp BP Pulse Ox 99.6 F 88 18 114/69 97 03/19/17 20:02 03/19/17 20:02 03/19/17 20:02 03/19/17 20:02 03/19/17 20:02 - Physical Exam Comments: 03/19/17 21:32 GENERAL: Awake, alert, and fully oriented, in no acute distress HEAD: No signs of trauma EYES: PERRLA, EOMI, sclera anicteric, conjunctiva clear ENT: Auricles normal inspection, hearing grossly normal, nares patent, oropharynx clear without exudates. Moist mucosa NECK: Normal ROM, supple, no lymphadenopathy, JVD, or masses LUNGS: Breath sounds equal, clear to auscultation bilaterally. No wheezes, and no crackles HEART: Regular rate and rhythm, normal S1 and S2, no murmurs, rubs or gallops ABDOMEN: Soft, nontender, normoactive bowel sounds. No guarding, no rebound. No masses EXTREMITIES: No tenderness to palpation of the left lower extremity or varus/ valgus stress of the left femur, 2+ DP, able to bear weight, ROM intact. Left fourth finger, swollen throughout, unable to bend at the DIP joint secondary to pain. All other extremities: Normal range of motion, no edema. No clubbing or cyanosis. No cords, erythema, or tenderness NEUROLOGICAL: Cranial nerves II through XII grossly intact. Normal speech, gait deferred. SKIN: Warm, Dry, normal turgor.. <Jessenia Roper - Last Filed: 03/19/17 22:18> - Vital Signs Last Vital Signs Temp Pulse Resp BP Pulse Ox 99.6 F 88 18 114/69 97 03/19/17 20:02 03/19/17 20:02 03/19/17 20:02 03/19/17 20:02 03/19/17 20:02 <Fannie Arnold - Last Filed: 03/19/17 23:51> Medical Decision Making - Medical Decision Making 03/19/17 23:49 Pt comes after a fall; she has a broken finger and she complains of left hip and thigh pain. Pt is ambulatory. Pt has a normal exam, other than slight hip pain and left 4th finger swelling. Pt will be placed in a finger splint and she will follow with ortho as a outpatient. Motrin for pain. <Fannie Arnold - Last Filed: 03/19/17 23:51> *DC/Admit/Observation/Transfer - Attestations Scribe Attestion: 03/19/17 21:32 Documentation prepared by Jessenia Roper, acting as medical translator for Fannie Arnold MD. <Jessenia Roper - Last Filed: 03/19/17 22:18> - Discharge Dispostion Admit: No <Fannie Arnold - Last Filed: 03/19/17 23:51> Diagnosis at time of Disposition: Finger fracture, left - Discharge Dispostion Disposition: HOME Condition at time of disposition: Stable - Prescriptions Prescriptions: Ibuprofen [Motrin -] 600 mg PO TID #30 tablet - Referrals Referrals: Ernesto King MD [Staff Physician] - - Patient Instructions Printed Discharge Instructions: DI for Finger Fracture Print Language: HEBREW
[2017-03-19] MEDS ORDERED: KETOROLAC TROMETHAMINE 60 MG/2 ML VIAL IM ONE (21:23)
[2017-03-19] MEDS ORDERED: KETOROLAC TROMETHAMINE 60 MG/2 ML VIAL ONE (21:26)
== END 2017-03-19 22:40 | disposition home or self-care (01) ==
LOC: JER 20:00 → JERFT 20:00 → JER 22:40
PROC: 2W3KX1Z Immobilization of Left Finger using Splint (ICD-10-PCS; principal; 2017-03-19)
DX: S62.655A Nondisplaced fracture of middle phalanx of left ring finger, initial encounter for closed fracture (principal); W18.39XA Other fall on same level, initial encounter; Y93.E9 Activity, other interior property and clothing maintenance; Y92.038 Other place in apartment as the place of occurrence of the external cause; Y99.8 Other external cause status
CPT/HCPCS: 29130; 73140-TC-LT; 73523-TC; 99282-25

== ENCOUNTER 2017-03-24 17:21 | Emergency (ER) | payer BC, OTHER ==
[2017-03-24 17:26] VITALS: BP 108/57; PULSE 88; TEMP 98.3; BMI 29.9
--- NOTE | 2017-03-24 17:42 | PDOC ---
History of Present Illness - General Chief Complaint: Revisit,Wound Recheck Stated Complaint: ER REVIST Time Seen by Provider: 03/24/17 17:30 History Source: Patient Exam Limitations: No Limitations - History of Present Illness Initial Comments: 76-year-old female with a history of hypertension, osteoporosis and hyperlipidemia presents to the emergency department complaining of pain to the left fourth digit. Patient was seen in the emergency department 5 days ago after she slipped and fell while taking out the garbage. Patient states she twisted her left fourth digit when she fell and the pain is described as 4/10 dull nonradiating intermittent discomfort. Patient denies extremity numbness or tingling sensation. Patient states she went home with a finger splint but believes she twisted her finger again yesterday causing pain. Patient has no other complaints. Occurred: reports: last week Past History - Past Medical History Allergies/Adverse Reactions: Allergies Allergy/AdvReac Type Severity Reaction Status Date / Time No Known Drug Allergies Allergy Verified 03/24/17 17:24 Home Medications: Ambulatory Orders Atorvastatin Ca [Lipitor] 40 mg PO DAILY 03/21/14 Sennosides [Senna] 8.6 mg PO PRN 03/24/14 Fluticasone Propionate [Flovent Diskus] 50 mcg IH DAILY 08/12/14 Guar Gum [Benefiber] 1 each PO BID #0 packet 08/12/14 Levothyroxine [Synthroid -] 75 mcg PO DAILY 08/12/14 Aspirin Coated [Ecotrin -] 81 mg PO DAILY #0 09/03/14 Acetaminophen [Mapap] 1,000 mg PO BID 10/01/16 Calcium Carbonate/Vitamin D3 [Oyster Shell 500-Vit D3 200 Tb] 1 each PO BID Escitalopram Oxalate [Lexapro -] 20 mg PO DAILY 10/01/16 Metoprolol Tartrate 12.5 mg PO BID 10/01/16 Clopidogrel Bisulfate [Plavix -] 75 mg PO DAILY tablet 10/03/16 Ibuprofen [Motrin -] 600 mg PO TID #30 tablet 03/19/17 Anemia: No Asthma: No Cancer: No Cardiac Disorders: Yes (HEART MURMUR) CVA: No COPD: No CHF: No Dementia: No Diabetes: No GI Disorders: Yes (CHRONIC CONSTIPATION) Disorders: No HTN: Yes Hypercholesterolemia: Yes Liver Disease: No Seizures: No Thyroid Disease: Yes (HYPOTHYROID DISEASE) - Surgical History Abdominal Surgery: Yes Appendectomy: No Cardiac Surgery: Yes (07/13/2016) Cholecystectomy: No Lung Surgery: No Neurologic Surgery: No Orthopedic Surgery: No - Immunization History Immunization Up to Date: Yes - Suicide/Smoking/Psychosocial Hx Smoking History: Never smoked Have you smoked in the past 12 months: No Hx Alcohol Use: No Drug/Substance Use Hx: No Substance Use Type: None Hx Substance Use Treatment: No Review of Systems - Review of Systems Able to Perform ROS?: Yes Comments:: 03/24/17 17:46 Left 4th digit Pain slight swelling denies numbness/tingling sensation Is the patient limited Turkmen proficient: No *Physical Exam - Vital Signs Last Vital Signs Temp Pulse Resp BP Pulse Ox 98.3 F 88 18 108/57 99 03/24/17 17:23 03/24/17 17:23 03/24/17 17:23 03/24/17 17:23 03/24/17 17:23 - Physical Exam Comments: 03/24/17 17:46 GENERAL: Awake, alert, and fully oriented, in no acute distress EXTREMITIES: No tenderness to palpation of the left lower extremity or varus/ valgus stress of the left femur, 2+ DP, able to bear weight, ROM intact. Left fourth finger, swollen throughout, unable to bend at the DIP joint secondary to pain. All other extremities: Normal range of motion, no edema. No clubbing or cyanosis. No cords, erythema, or tenderness NEUROLOGICAL: Cranial nerves II through XII grossly intact. Normal speech, gait deferred. SKIN: Warm, Dry, normal turgor.. ED Treatment Course - RADIOLOGY Radiology Studies Ordered: Category Date Time Status FINGER(S) LEFT [RAD] Stat Radiology 03/24/17 17:39 Ordered Radiograph Interpretation: 03/24/17 17:47 Xray left 4th digit fx distal 4th mid phalanx *DC/Admit/Observation/Transfer Diagnosis at time of Disposition: Finger fracture, left Qualifiers: Encounter type: subsequent encounter Finger: ring finger Fracture type: closed Phalanx: middle Fracture alignment: nondisplaced Fracture healing: with routine healing Qualified Code(s): S62.655D - Nondisplaced fracture of medial phalanx of left ring finger, subsequent encounter for fracture with routine healing - Discharge Dispostion Disposition: HOME Condition at time of disposition: Stable Admit: No - Referrals Referrals: Alex Larry MD [Staff Physician] - - Patient Instructions Printed Discharge Instructions: DI for Finger Fracture Additional Instructions: Rest Elevate Follow up with your orthopedic surgeon or the one listed on the discharge form. Return to the ER for severe/persistent/worsening symptoms, extremity numbness/ tingling sensation. Print Language: GREEK
== END 2017-03-24 18:31 | disposition home or self-care (01) ==
LOC: JERFT 17:21
DX: S62.652D Nondisplaced fracture of middle phalanx of right middle finger, subsequent encounter for fracture with routine healing (principal); W18.39XD Other fall on same level, subsequent encounter; I10 Essential (primary) hypertension; E78.00 Pure hypercholesterolemia, unspecified; E03.9 Hypothyroidism, unspecified; K59.04 Chronic idiopathic constipation; M19.90 Unspecified osteoarthritis, unspecified site
CPT/HCPCS: 73140-TC-LT; 99281-25

== ENCOUNTER 2017-05-22 19:06 | Emergency (ER) | payer BC, OTHER ==
[2017-05-22 19:57] VITALS: BP 142/75; PULSE 68; TEMP 98.3; BMI 25.3
--- NOTE | 2017-05-22 20:52 | PDOC ---
History of Present Illness - General Chief Complaint: Injury Stated Complaint: FALL/INJURY Time Seen by Provider: 05/22/17 20:20 History Source: Patient Exam Limitations: No Limitations - History of Present Illness Initial Comments: This is a 76 YOF with h/o osteoarthritis (chronic shoulder pain), osteoporosis, HTN, HLD, open heart surgery, and daily Plavix use who presents with 6/10 right neck and shoulder pain and developing neck hematoma about 2 hours s/p trip and fall at a [employer] party. She notes mild but increasing difficulty breathing secondary to sensation that her throat is swollen. She denies any preceding symptoms before the fall, denies LOC or hitting her head, and denies any subsequent headache, vision change, numbness, tingling, focal weakness, difficulty balancing or walking, or other symptoms. She denies any h/o kidney problems and review of her [facility] records shows that her last Cr was 0.6. Past History - Past Medical History Allergies/Adverse Reactions: Allergies Allergy/AdvReac Type Severity Reaction Status Date / Time No Known Drug Allergies Allergy Verified 05/22/17 23:12 Home Medications: Ambulatory Orders Atorvastatin Ca [Lipitor] 40 mg PO DAILY 03/21/14 Sennosides [Senna] 8.6 mg PO PRN 03/24/14 Fluticasone Propionate [Flovent Diskus] 50 mcg IH DAILY 08/12/14 Guar Gum [Benefiber] 1 each PO BID #0 packet 08/12/14 Levothyroxine [Synthroid -] 75 mcg PO DAILY 08/12/14 Aspirin Coated [Ecotrin -] 81 mg PO DAILY #0 09/03/14 Acetaminophen [Mapap] 1,000 mg PO BID 10/01/16 Calcium Carbonate/Vitamin D3 [Oyster Shell 500-Vit D3 200 Tb] 1 each PO BID Escitalopram Oxalate [Lexapro -] 20 mg PO DAILY 10/01/16 Metoprolol Tartrate 12.5 mg PO BID 10/01/16 Clopidogrel Bisulfate [Plavix -] 75 mg PO DAILY tablet 10/03/16 Ibuprofen [Motrin -] 600 mg PO TID #30 tablet 03/19/17 Anemia: No Asthma: No Cancer: No Cardiac Disorders: Yes (HEART MURMUR) CVA: No COPD: No CHF: No Dementia: No Diabetes: No GI Disorders: Yes (CHRONIC CONSTIPATION) Disorders: No HTN: Yes Hypercholesterolemia: Yes Liver Disease: No Seizures: No Thyroid Disease: Yes (HYPOTHYROID DISEASE) - Surgical History Abdominal Surgery: Yes Appendectomy: No Cardiac Surgery: Yes (07/13/2016) Cholecystectomy: No Lung Surgery: No Neurologic Surgery: No Orthopedic Surgery: No - Immunization History Immunization Up to Date: Yes - Suicide/Smoking/Psychosocial Hx Smoking History: Never smoked Have you smoked in the past 12 months: No Hx Alcohol Use: No Drug/Substance Use Hx: No Substance Use Type: None Hx Substance Use Treatment: No Review of Systems - Review of Systems Able to Perform ROS?: Yes Constitutional: No: Chills, Fever, Unexplained wgt Loss HEENTM: Yes: Throat Swelling. No: Eye Pain, Recent change in vision, Nose Pain , Nose Congestion, Difficulty Swallowing, Mouth Swelling Respiratory: Yes: Shortness of Breath (states ffrom throat swelling). No: Cough Cardiac (ROS): No: Chest Pain, Palpitations, Syncope ABD/GI: No: Constipated, Diarrhea, Nausea, Vomiting : No: Burning, Dysuria Musculoskeletal: Yes: Other (right shoulder pain, right neck swelling and pain) . No: Back Pain, Neck Pain Integumentary: No: Bruising, Rash Neurological: No: Headache, Numbness, Tingling, Weakness, Dizziness Endocrine: No: Unexplained Weight Gain, Unexplained Weight Loss *Physical Exam - Vital Signs Last Vital Signs Temp Pulse Resp BP Pulse Ox 98.3 F 68 20 142/75 99 05/22/17 19:50 05/22/17 19:50 05/22/17 19:50 05/22/17 19:50 05/22/17 19:50 - Physical Exam General Appearance: Yes: Nourished, Appropriately Dressed, Other (initially mild distress, anxious but appropriate older female, moderate right inferior/ anterior neck hematoma which is obvious, not moving RUE) HEENT: positive: EOMI, BRODERICK, Normal ENT Inspection, Normal Voice, TMs Normal, Pharynx Normal, Hearing Grossly Normal, Other (no hollins sign, no cephalohematoma, no raccoon eyes, no CSF rhinorrhea or otorrhea). negative: Scleral Icterus (R), Scleral Icterus (L), Nasal Congestion Neck: positive: Tender (tenderness to palpation of right inferior anterior neck hematoma), Trachea midline, Supple. negative: Rigid Respiratory/Chest: positive: Lungs Clear, Normal Breath Sounds. negative: Respiratory Distress, Crackles, Rhonchi, Stridor, Wheezing Cardiovascular: positive: Regular Rhythm, Regular Rate. negative: Murmur Gastrointestinal/Abdominal: positive: Normal Bowel Sounds, Soft. negative: Tender, Organomegaly, Pulsatile Mass, Guarding Musculoskeletal: positive: Normal Inspection. negative: Decreased Range of Motion, Vertebral Tenderness Extremity: positive: Normal Capillary Refill, Normal Inspection, Normal Range of Motion. negative: Tender, Cyanosis Integumentary: positive: Normal Color, Dry, Warm. negative: Erythema, Rash, Bruising Neurologic: positive: reimbursement spec II-XII NML intact, Fully Oriented, Alert, Normal Mood/ Affect, Normal Response, Motor Strength 10/07 ED Treatment Course - LABORATORY CBC & Chemistry Diagram: 05/22/17 21:14 05/22/17 21:14 - RADIOLOGY Radiology Studies Ordered: Category Date Time Status NECK CTA [CT] Stat CT Scan 05/22/17 20:38 Ordered CHEST X-RAY PORTABLE* [RAD] Stat Radiology 05/22/17 20:38 Ordered Medical Decision Making - Medical Decision Making 05/22/17 20:46 The patient is being sent for STAT neck CTA d/t developing neck hematoma with tachypnea and stated throat swelling sensation. She will sign consent for contrast without BUN and Cr as this is very emergent and d/t trauma. She is very anxious with IV placement but otherwise no distress. 1 mg IV Ativan ordered. 05/22/17 21:17 Patient remains with same amount of mild stated difficulty breathing, tachypneic but likely d/t anxiety. 05/22/17 21:58 Patient back from neck CTA study, initial emergency physician read with obvious medial clavicle fracture on the right. Patient remains with only mild difficulty breathing likely 2/2 anxiety. Head of bed is maintained elevated >45. 05/22/17 22:[address] Carito cody for Radiology who kindly gives initial verbal impression over the phone. No obvious dissection, + obvious medial clavicle fracture. Possible small 3 mm blush, difficult to tell arterial versus venous, but no large blush. Will await final read and decide vascular consult versus transfer. 05/23/17 00:08 Comminuted angulated medial clavicle fxr on CT final read. Given h/o trauma and complicated fxr with surrounding muscle hematoma, will xfer patient. Spoke with [facility] and patient is accepted in transfer by Dr. Hicks to the ED. Critical care transfer team will arrive at about 12:20am. *DC/Admit/Observation/Transfer Diagnosis at time of Disposition: Clavicle fracture, sternal end Qualifiers: Encounter type: initial encounter Fracture type: closed Fracture alignment: nondisplaced Laterality: right Qualified Code(s): S42.017A - Nondisplaced fracture of sternal end of right clavicle, initial encounter for closed fracture Hematoma of neck Qualifiers: Encounter type: initial encounter Qualified Code(s): S10.93XA - Contusion of unspecified part of neck, initial encounter - Discharge Dispostion Disposition: TRANSFER ACUTE CARE/OTHER HOSP Condition at time of disposition: Guarded - Referrals Referrals: Willy Dallas MD [Primary Care Provider] - - Patient Instructions - Post Discharge Activity - Transfer to Acute Care Facility Receiving Facility: [facility].
[2017-05-22 21:38] LABS: BASO % 0.6 % (0-2.0); EOS % 0.8 % (0-4.5); MCH 31.1 pg (25.7-33.7); MCHC 32.9 g/dl (32.0-36.0); MEAN CELL VOLUME 94.5 fl (80-96); MEAN PLT VOLUME 10.4 fl (7.5-11.1); NEUT % 68.5 % (42.8-82.8); PLATELET COUNT 218 K/MM3 (134-434); RDW 13.3 % (11.6-15.6)
[2017-05-22 21:51] LABS: INR 1.05 (0.82-1.09); PROTHROMBIN TIME (PATIENT) 11.9 SEC (9.98-11.88)
--- NOTE | 2017-05-22 22:15 | PDOC ---
Attending Attestation - HPI HPI: 05/22/17 22:18 Patient is a 76 year old female with a significant past medical history of osteoarthritis (chronic shoulder pain), osteoporosis, HTN, and HLD who presents to the ED with complaints of right neck and right shoulder pain s/p fall that occured 1 hour prior to ED visit. Patient reports attending a work holiday alliance party when she tripped and fell. Patient reports right neck pain and right shoulder pain to be a 6/10 dull pain thats he says does not radiate and is constant. She reports experiencing sensation in her throat that she states feels like her throat is closing. Patient report experiencing episodes of SOB secondary to throat swelling sensation. Denies loss of consciousness, hitting of head. Denies blurred vision, vision changes. Denies nausea, vomiting. Denies chest pain, SOB. Denies any other symptoms. Allergies: None Social history: No smoking. No alcohol. No illicit drugs. Surgical history: None PMD: Dr. Willy Dallas - Physicial Exam PE: 05/22/17 22:18 Vitals: Triage Vital signs reviewed General Appearance: no acute distress, well nourished well developed Head: Atraumatic Eyes: Pupils equal reactive round, extraocular movement intact Neck: +Left side of neck hematoma over the clavicle. Supple; No Nucal rigidity Chest Wall: Nontender Cardiac: Regular rate and rhythm, no murmurs, no rubs, no gallops Lungs: Clear to auscultation bilateral, good air movement bilaterally Abdomen: Soft, non distended, normal bowel sounds, non tender to palpation Extremities: Full range of motion to all extremities, no cyanosis, clubbing, or edema Skin: Warm and dry, no rashes or lesions, no rash, no petechiae Neuro: AOX3; Cranial Nerves 2-12 grossly intact, Strength intact to all extremities, Sensation intact to all extremities, gait normal Psych: Normal mood, normal affect - Medical Decision Making 05/22/17 22:18 Documentation prepared by Karson Rand, acting as medical reception for Alin Ruby MD, MD/DO. <Karson Rand - Last Filed: 05/22/17 22:49> - Resident Resident Name: Melanie Sierra - ED Attending Attestation I have performed the following: I have examined & evaluated the patient, The case was reviewed & discussed with the resident, I agree w/resident's findings & plan, Exceptions are as noted - Critical Care Time Total Critical Care Time: 35 Critical Care Statement: The care of this patient involved high complexity decision making to prevent further life threatening deterioration of the patient 's condition and/or to evaluate & treat vital organ system(s) failure or risk of failure. - Medical Decision Making Right-sided neck hematoma. CTA ordered. No stridor clear speech no bruit. Hemodynamically stable at this time. Reevaluation: Right-sided neck hematoma. On CTA no acute arterial bleed likely small venous bleed. There is midline shift of the trachea but the trachea is patent throughout. Given vascular etiology with expanding hematoma shift of trachea as well as associated medial third clavicle fracture patient most appropriate for trauma service. Case discussed with [facility]. We'll transfer to the emergency department for trauma observation and management. accepting physician <Alin Ruby - Last Filed: 05/23/17 06:14> Heart Score/ECG Review - ECG Intrepretation Comment:: 05/22/17 22:54 EKG performed at 22:46:18 demonstrates rate of 74 bpm, normal sinus rhythm, axis equal to moderate voltage criteria for LVH, may be normal variant. no T wave inversions, no ST elevations <Karson Rand - Last Filed: 05/22/17 22:49>
[2017-05-22] MEDS ORDERED: LORazepam 2 MG/ML SDV VIAL ONE (22:21)
[2017-05-22] MEDS ORDERED: ACETAMINOPHEN 1000 MG/100 ML VIAL (NON FORMULARY) IVPB ONE (23:24)
[2017-05-22] MEDS ORDERED: ACETAMINOPHEN INJECTION 100 ML IVPB ONE (23:40)
--- NOTE | 2017-05-23 21:15 | EKG ---
Test Reason : Blood Pressure : / mmHG Vent. Rate : 074 BPM Atrial Rate : 074 BPM P-R Int : 146 ms QRS Dur : 090 ms QT Int : 424 ms P-R-T Axes : 037 -09 059 degrees QTc Int : 470 ms NORMAL SINUS RHYTHM MODERATE VOLTAGE CRITERIA FOR LVH, MAY BE NORMAL VARIANT BORDERLINE ECG WHEN COMPARED WITH ECG OF 01-OCT-2016 14:53, NO SIGNIFICANT CHANGE WAS FOUND Confirmed by MD ARCADIO, GEORGES ([id number]) on 05/23/2017 9:14:31 PM Referred By: Confirmed By:GEORGES ERVIN MD
== END 2017-05-23 00:44 | disposition short-term general hospital (02) ==
LOC: JER 19:06
PROC: 3E033NZ Introduction of Analgesics, Hypnotics, Sedatives into Peripheral Vein, Percutaneous Approach (ICD-10-PCS; principal; 2017-05-22)
PROC: 3E033GC Introduction of Other Therapeutic Substance into Peripheral Vein, Percutaneous Approach (ICD-10-PCS; 2017-05-22)
DX: S42.017A Nondisplaced fracture of sternal end of right clavicle, initial encounter for closed fracture (principal); S10.93XA Contusion of unspecified part of neck, initial encounter; I10 Essential (primary) hypertension; E78.00 Pure hypercholesterolemia, unspecified; M19.90 Unspecified osteoarthritis, unspecified site; W18.39XA Other fall on same level, initial encounter; Y93.89 Activity, other specified; Y92.9 Unspecified place or not applicable; R01.1 Cardiac murmur, unspecified; E03.9 Hypothyroidism, unspecified
CPT/HCPCS: 36415; 70498-TC; 71010-TC; 73030-TC-RT; 80053; 82550; 84484; 85025; 85610; 86850; 86900; 86901; 93005; 93010; 96374; 96375; 99284-25

== ENCOUNTER 2018-06-07 18:26 | Emergency (ER) | payer BC, OTHER ==
[2018-06-07 18:52] VITALS: BP 121/79; PULSE 60; TEMP 98.3; BMI 25.0
== END 2018-06-07 20:11 | disposition left against medical advice (07) ==
LOC: JER 18:26 → JERFT 18:26
DX: Z53.21 Procedure and treatment not carried out due to patient leaving prior to being seen by health care provider (principal)
CPT/HCPCS: 99281-25

== ENCOUNTER 2019-01-29 18:11 | Emergency (ER) | payer MEDICARE, OTHER ==
[2019-01-29 18:15] VITALS: BP 112/67; PULSE 83; TEMP 98.1; BMI 29.2
--- NOTE | 2019-01-29 18:17 | PDOC ---
Rapid Medical Evaluation Chief Complaint: Pain Time Seen by Provider: 01/29/19 18:15 Medical Evaluation: Allergies Allergy/AdvReac Type Severity Reaction Status Date / Time No Known Drug Allergies Allergy Verified 01/29/19 18:15 Vital Signs Temp Pulse Resp BP Pulse Ox 98.1 F 83 18 112/67 99 01/29/19 18:12 01/29/19 18:12 01/29/19 18:12 01/29/19 18:12 01/29/19 18:12 01/29/19 18:16 Pt presents for one day of tooth and gum pain. No fever Exam: Pain to the R upper gum Orders: Nothing Pt to proceed to the ER for further evaluation Discharge Disposition - Diagnosis Pain in gums - Referrals - Patient Instructions - Post Discharge Activity
--- NOTE | 2019-01-29 18:50 | PDOC ---
History of Present Illness - General Chief Complaint: Pain Stated Complaint: PAIN Time Seen by Provider: 01/29/19 18:15 - History of Present Illness Initial Comments: 01/29/19 18:49 78-year-old female presents for evaluation of right upper gum pain 3 days without systemic symptoms Past History - Past Medical History Allergies/Adverse Reactions: Allergies Allergy/AdvReac Type Severity Reaction Status Date / Time No Known Drug Allergies Allergy Verified 01/29/19 18:15 Home Medications: Ambulatory Orders Atorvastatin Ca [Lipitor] 40 mg PO DAILY 03/21/14 Sennosides [Senna] 8.6 mg PO PRN 03/24/14 Fluticasone Propionate [Flovent Diskus] 50 mcg IH DAILY 08/12/14 Guar Gum [Benefiber] 1 each PO BID #0 packet 08/12/14 Levothyroxine [Synthroid -] 75 mcg PO DAILY 08/12/14 Aspirin Coated [Ecotrin -] 81 mg PO DAILY #0 09/03/14 Acetaminophen [Mapap] 1,000 mg PO BID 10/01/16 Calcium Carbonate/Vitamin D3 [Oyster Shell 500-Vit D3 200 Tb] 1 each PO BID Escitalopram Oxalate [Lexapro -] 20 mg PO DAILY 10/01/16 Metoprolol Tartrate 12.5 mg PO BID 10/01/16 Clopidogrel Bisulfate [Plavix -] 75 mg PO DAILY tablet 10/03/16 Ibuprofen [Motrin -] 600 mg PO TID #30 tablet 03/19/17 Amoxicillin - [Amoxicillin 500mg Capsule -] 500 mg PO TID #21 capsule 01/29/19 Anemia: No Asthma: No Cancer: No Cardiac Disorders: Yes (HEART MURMUR) CVA: No COPD: No CHF: No Dementia: No Diabetes: No GI Disorders: Yes (CHRONIC CONSTIPATION) Disorders: No HTN: Yes Hypercholesterolemia: Yes Liver Disease: No Seizures: No Thyroid Disease: Yes (HYPOTHYROID DISEASE) - Surgical History Abdominal Surgery: Yes Appendectomy: No Cardiac Surgery: Yes (07/13/2016) Cholecystectomy: No Lung Surgery: No Neurologic Surgery: No Orthopedic Surgery: No - Immunization History Immunization Up to Date: Yes - Suicide/Smoking/Psychosocial Hx Smoking History: Never smoked Have you smoked in the past 12 months: No Hx Alcohol Use: No Drug/Substance Use Hx: No Substance Use Type: None Hx Substance Use Treatment: No Review of Systems - Review of Systems HEENTM: Yes: Dental Problems *Physical Exam - Vital Signs Last Vital Signs Temp Pulse Resp BP Pulse Ox 98.1 F 83 18 112/67 99 01/29/19 18:12 01/29/19 18:12 01/29/19 18:12 01/29/19 18:12 01/29/19 18:12 - Physical Exam Comments: 01/29/19 18:48 Is a firm mass at the right upper gum without fluctuance erythema or warmth. There is tenderness Medical Decision Making - Medical Decision Making 01/29/19 18:48 Should follow-up with until, prophylactic antibiotics given. *DC/Admit/Observation/Transfer Diagnosis at time of Disposition: Pain in gums, Gum abscess - Discharge Dispostion Disposition: HOME Condition at time of disposition: Stable Decision to Admit order: No - Referrals Referrals: Manisha Chamberlain [facility] [Primary Care Provider] - [facility] [Outside] - Patient Instructions Additional Instructions: parece tener un absceso dental. Regrese a la wiliam de emergencias para empeorar los sntomas, marleni sin falta debe hacer un seguimiento con un dentista dentro de los prximos 1-2 prather. [place] menos antibiticos segn las indicaciones y termine todo el curso. - Post Discharge Activity
== END 2019-01-29 18:49 | disposition home or self-care (01) ==
LOC: JERFT 18:11
DX: K06.8 Other specified disorders of gingiva and edentulous alveolar ridge (principal); K05.219 Aggressive periodontitis, localized, unspecified severity; I10 Essential (primary) hypertension; E78.5 Hyperlipidemia, unspecified; E03.9 Hypothyroidism, unspecified
CPT/HCPCS: 99281-25

== ENCOUNTER 2021-09-09 16:43 | Emergency (ER) | payer OTHER ==
[2021-09-09 17:01] VITALS: BP 155/79; PULSE 65; TEMP 97.9; BMI 29.2
[2021-09-09] MEDS ORDERED: ACETAMINOPHEN 1000 MG/100 ML BAG IVPB ONE (18:11)
[2021-09-09] MEDS ORDERED: ACETAMINOPHEN INJECTION 100 ML IVPB ONE (18:21)
[2021-09-09 18:51] LABS: BASO % 0.7 % (0-2.0); EOS % 1.3 % (0-4.5); HEMATOCRIT 40.6 % (32.4-45.2); HEMOGLOBIN 13.4 GM/dL (10.7-15.3); LYMPH % 25.1 % (8-40); MCH 30.4 pg (25.7-33.7); MCHC 32.9 g/dl (32.0-36.0); MEAN CELL VOLUME 92.4 fl (80-96); MEAN PLT VOLUME 10.2 fl (7.5-11.1); MONO % 5.6 % (3.8-10.2); NEUT % 67.3 % (42.8-82.8); PLATELET COUNT 134 10^3/uL (134-434); RBC 4.39 M/mm3 (3.60-5.2); RDW 13.6 % (11.6-15.6); WHITE BLOOD COUNT 8.4 K/mm3 (4.0-10.0)
[2021-09-09 19:12] LABS: CALCIUM 9.2 mg/dL (8.5-10.1)
[2021-09-09 19:15] LABS: CREATININE 0.9 mg/dL (0.55-1.3)
[2021-09-09 19:18] LABS: BILIRUBIN,TOTAL 0.3 mg/dL (0.2-1); TOT PROT 7.3 g/dl (6.4-8.2)
[2021-09-09 19:25] LABS: INR 1.09 (0.83-1.09); PROTHROMBIN TIME (PATIENT) 12.5 SEC (9.7-13.0)
[2021-09-09] MEDS ORDERED: traMADol HCL 50 MG TABLET PO ONE (22:41)
[2021-09-10] MEDS ORDERED: traMADol HCL 50 MG TABLET ONE
== END 2021-09-10 00:05 | disposition home or self-care (01) ==
LOC: JER 16:43
PROC: 3E0333Z Introduction of Anti-inflammatory into Peripheral Vein, Percutaneous Approach (ICD-10-PCS; principal; 2021-09-09)
DX: M25.511 Pain in right shoulder (principal); M79.601 Pain in right arm; R10.9 Unspecified abdominal pain; W10.9XXA Fall (on) (from) unspecified stairs and steps, initial encounter
CPT/HCPCS: 36415; 70450-TC; 71260-TC; 73030-TC-RT-FY; 73060-TC-RT-FY; 74177-TC; 80053; 85025; 85610; 86850; 86900; 86901; 96374; 99285-25; Q9967